=== PATIENT | female | born 1945 | race Caucasian/White ===

== ENCOUNTER 2018-10-07 05:45 | Day surgery (SDC) | payer MEDICARE, SELFPAY ==
[2018-10-07 06:27] VITALS: BP 121/74; PULSE 82; RESP 18; TEMP 36.5; O2SAT 97
[2018-10-07] MEDS: Lactated Ringers 1,000 ML 80 ML IV (06:41)
[2018-10-07] MEDS: ceFAZolin 1 GM/50 ML BAG IVPB (07:42)
[2018-10-07] MEDS: Lidocaine 1% Multi-Dose 50 ML VIAL (07:46)
[2018-10-07] MEDS: Bupivacaine 0.5% Pres-Free 30 ML VIAL (07:46)
--- NOTE | 2018-10-07 08:05 | BONE_PTH ---
PATIENT: CONSTANTIN MENA LOC: [facility] U#:[id number] AGE/SX: 73/F ROOM: RE10/07/[address]: Avila Webster : 1945 BED: DIS: 10/07/2018 SPEC #: [id number] RECD: 10/07/18 12:41 STATUS: ZAYRA RE #: [id number] NIURKA: 10/07/18 08:[address]: Avila Webster DEPT: Surgical Specimen RECD BY: Elissa Kaplan ENTERED: 10/07/18 12:44 SP TYPE: Bone OTHR DR: Anu Fernandez Tissues: 1 - BONE BX/CURRETTE NOT PATH FRACTURE Procedures: GROSS AND MICRO LEVEL 4 Comments: [id number] (SUBMITTED IN 100% ETHANOL)
[2018-10-07] MEDS: Dexamethasone 4 MG/ML VIAL (08:30)
--- NOTE | 2018-10-07 08:43 | W.PM.DSUDISC ---
Discharge Plan Disposition Patient Disposition: HOME Condition: Good Discharge Details Reason For Visit: correction right hallux limitus Attending Provider: Avila Webster Primary Care Provider: Anu Fernandez Home Meds and New Rx's Prescriptions: New hydrocodone-acetaminophen [Vicodin] 5-300 mg tablet 1 tab PO Q6H PRN (Reason: pain) Qty: 7 RF: 0 Continued meloxicam 7.5 mg Tablet 7.5 mg PO DAILY RF: 0 losartan-hydrochlorothiazide [Hyzaar] 100-25 mg Tablet 1 tab PO DAILY RF: 0 lorazepam 0.5 mg Tablet 0.5 mg PO HS RF: 0 omeprazole 20 mg Capsule,Delayed Release(Dr/Ec) 20 mg PO DAILY RF: 0 sertraline 50 mg Tablet 50 mg PO DAILY RF: 0 bupropion HCl 150 mg Tablet Extended Release 24 Hr 150 mg PO QAM RF: 0 Discharge Instructions Activity:: Activity as Tolerated Remove Dressings/Wound Care:: Do Not Remove Shower/Bathe:: Cover Diet:: Normal Diet Discharge Orders Discharge Orders: Discharge Order (Routine); Ordered 10/07/18 Ordered By: Avila Webster DS: Diagnosis Discharge Diagnosis (1) Hallux limitus of right foot: Start date: 10/07/18 Start time: 08:44 Status: Acute
[2018-10-07 09:20] VITALS: BP 114/68; PULSE 63; RESP 16; TEMP 36.2; O2SAT 97
--- NOTE | 2018-10-07 12:30 | ROE_ITS ---
DATE OF PROCEDURE: October 07, 2018 PREOPERATIVE DIAGNOSIS: Symptomatic hallux limitus deformity, right foot. POSTOPERATIVE DIAGNOSIS: Same. PROCEDURE: Garcia bunionectomy with .062 K-Wire fixation. SURGEON: Avila Webster D.P.M. OPERATIVE INDICATIONS: 73-year-old female with progressive pain associated with hallux limitus inter fering with shoe gear, ambulation, and daily activities. Non-surgical treatment has failed to provid e sufficient relief of symptoms. Risks and complications have been disclosed, including the potentia l for pain, scarring, infection, shortening of the great toe, wound dehiscence, elevation of the grea t toe, lack of toe purchase, metatarsalgia, the potential need for revisional procedures. Informed c onsent has been obtained. No promises made to the final outcome of surgery. REPORT OF OPERATION: Ruchi was brought to the operative suite and placed in the supine position. G eneral anesthesia was obtained by Shar Arguelles CRNA. [place] block was performed utilizing 10 cc's 50:50 mixture of 1% Lidocaine plain, 0.5% Marcaine plain. A time-out was performed. Attention was now directed to the right foot, which was exsanguinated, an ankle tourniquet being infl ated 250 mmHg. Attention was directed to the dorsal aspect of the right first MPJ. A 5 cm incision was made medial parallel to the EHL tendon. The incision was deepened in controlled depth fashion, h emostasis acquired with electrocautery as needed. Dissection was carried down to the joint capsule, which was incised midline dorsal. The capsule was reflected and extensive end-stage degenerative art hritis was appreciated within the joint. Dorsal spurs, medial and lateral exostosis at the first met atarsal head is noted. With power instrumentation the base of the proximal phalanx was resected, rem oving approximately 6 mm of bone. The dorsal, medial and lateral hyperostoses of the first metatarsa l head were resected. Upon this maneuver, white crystalline deposits noted within the subchondral rochelle ne, consistent with uric acid gout. I did take a piece of this and send it to Pathology for evaluati on. All rough and bony edges were then rasped smooth. Copious irrigation was performed. I felt lik e good correction was obtained. The great toe was fixated in retrograde fashion utilizing a .062 K-W maricruz. Irrigation was performed. The joint capsule was repaired with simple interrupted suture #3-0 V icryl. The subcutaneous layer was repaired with simple interrupted suture #4-0 Vicryl. A running hoyt bcuticular stitch was used of #4-0 Monocryl to bring the skin together. Half-inch Steri-Strips appli ed. Four milligram of dexamethasone phosphate was infused about the wound. Xeroform, gauze fluff co mpression dressings applied. The tourniquet was released at thirty-five minutes, vascularity returni ng immediately to all toes. Ruchi left the OR with vital signs stable, vascular status intact. She will be followed by me in the office next week. cc: CRISTIANE Jacobson
== END 2018-10-07 10:00 | disposition home or self-care (01) ==
PROVIDERS: PCP Registered Nurse; Visit Provider Podiatrist
PROC: (CPT 28292; principal; 2018-10-07 07:30)
DX: M20.5X1 Other deformities of toe(s) (acquired), right foot (principal); I10 Essential (primary) hypertension
CPT/HCPCS: 28292; 88305; 88304; J0690; J1100; J2250; J2405; J3010